=== PATIENT | male | born 1990 | race Caucasian/White ===

== ENCOUNTER 2018-03-31 11:52 | Emergency (ER) | payer BC, SELFPAY ==
[2018-03-31 12:30] VITALS: BP 132/66; PULSE 90; RESP 16; TEMP 36.7; O2SAT 97
[2018-03-31] MEDS: Acetaminophen 325 MG TAB 650 MG PO (15:15)
[2018-03-31] MEDS: Ketorolac 30 MG/ML VIAL IVP (15:20)
[2018-03-31] MEDS: Normal Saline Flush 10 ML SYR IVP (15:20)
[2018-03-31 15:25] LABS: Abs Immature Grans 0.03 k/cumm (0.0-0.09); Absolute Basophil Count 0.04 k/cumm (0.0-0.2); Absolute Eosinophil Count 0.16 k/cumm (0.0-0.7); Absolute Lymphocyte Count 0.95 k/cumm (1.2-3.4); Absolute Monocyte Count 0.31 k/cumm (0.11-0.7); Absolute Neutrophil Count 2.58 k/cumm (1.2-6.7); Eosinophils % 3.9; HCT 39.5 % (40.0-50.0); HGB 14.1 g/dL (13.5-17.5); Immature Grans % 0.7; Lymphocytes % 23.3; Mean Corp. HGB Concentration 35.7 g/dL (32.0-36.0); Mean Corpuscular Volume 89.6 fL (80-95); Mean Platelet Volume 10.8 fL (8.0-11.0); Monocytes % 7.6; Neutrophils % 63.5; Platelet Count 118 x1000/uL (130-400); RBC 4.41 m/cumm (4.50-6.00); RBC Distribution Width 13.1 % (11.8-14.1); White Blood Cell Count 4.07 k/cumm (4.4-10.8)
[2018-03-31 15:33] LABS: Mono Screening POSITIVE (Negative)
[2018-03-31 15:48] LABS: ALT 107 U/L (12-78); AST 100 U/L (15-37); Albumin 3.6 g/dL (3.4-5.0); Alkaline Phosphatase 163 U/L (46-116); Anion Gap 6.5 mmol/L (3-11); BUN 10 mg/dL (7-18); Bilirubin, Total 1.4 mg/dL (0.2-1.0); CO2 31.5 mmol/L (21.0-32.0); CREATININE 1.09 mg/dL (0.70-1.30); Calcium 9.1 mg/dL (8.5-10.1); Chloride 97 mmol/L (98-107); Glucose 96 mg/dL (70-100); Potassium 3.9 mmol/L (3.5-5.1); Sodium 135 mmol/L (136-145); Total Protein 7.2 g/dL (6.4-8.2)
--- NOTE | 2018-03-31 15:53 | ED.GENADUL_ITS ---
Discharge Plan Disposition Patient Disposition: HOME Discharge Details Chief Complaint: Headache Clinical Impression: Infectious mononucleosis, Thrombocytopenia, Transaminitis Reason For Visit: headache / fever 4 days Primary Care Provider: None,None ED Provider: Avi Chambers Home Meds and New Rx's Prescriptions: Continued acetaminophen 500 mg Tablet 1,000 mg PO PRNRF: 0 citalopram 10 mg Tablet 10 mg PO DAILY AM RF: 0 Discharge Instructions Instructions: Mononucleosis (ED) Additional Instructions: Drink plenty of fluids and allow for plenty of rest over the next 2 weeks. No contact sport until cleared to do so by a health care provider. Please contact your primary care physician to arrange follow-up. You will need repeat blood testing done. Be sure to discuss this with your doctor. Return to the ER for any worsening or new concerning symptoms. Discharge Data Discharge Date/Time-TO BE ENTERED AT DEPARTURE: 03/31/18 18:38 Medical Decision Making 15:20 --27-year-old male with history of depression and anxiety here today with headache, sinus congestion and fever over the past 4 days. Bilateral anterior cervical lymphadenopathy and mild erythematous posterior oropharynx is no. Patient has no meningeal signs. Neuro intact. No trauma. No known coagulopathy. Suspect viral illness. Consider mono. Plan to check screening labs and give IV fluid bolus as well as Toradol. Will reassess. 16:00 -- Labs reviewed. Mild elevation in LFTs and total bili with mild thrombocytopenia noted. 18:00 -- Labs reviewed and +mono. Mild thrombocytopenia and transaminitis can be seen with mono. Patient reassessed HERRERA resolved. Feeling better. All results were reviewed with the patient. Plan for discharge with outpatient follow-up. I advised he call his doctor to schedule timely follow-up and repeat lab testing. He was encouraged to return to the ER for any worsening or new concerning symptoms including severe abdominal pain, HERRERA or confusion. Disposition decision was made weighing the risks and benefits of hospitalization versus outpatient treatment, the risk for further decompensation, and the patient's wishes. The patient was stable and requested discharge. Prior to discharge, my usual and customary return precautions for IM were reviewed with the patient - this included follow-up instructions and reason to return to the emergency department if condition worsens, does not improve as expected, or other new concerns arise. HPI General Mode of arrival: ambulatory . Date/Time Provider Initiated Documentation: 03/31/18 14:23 . Limitations to Documentation: no limitations . Information obtained by: patient . HPI Narrative: 27-year-old male presents with chief complaint of headache. Patient notes a headache for the past 4 days that he describes as a sinus headache. Headache is severe and waxes and wanes. He has associated sinus congestion with no discharge. He also notes some swelling of his lymph nodes in his neck as well as recent fever over the past few days. Headache is described as a throbbing pain anti-inflammatory medication does seem to help discomfort. He has no associated neck stiffness or rash. Related Data Home Medications Medication Instructions Recorded Confirmed acetaminophen 1,000 mg PO PRN 03/31/18 citalopram 10 mg PO DAILY AM 03/31/18 03/31/18 Allergies Allergy/AdvReac Type Severity Reaction Status Date / Time cat dander Allergy Mild Unverified 03/31/18 12:37 General Stated Complaint: Headache VALARIE: 3 Review of Systems Review of Systems All systems reviewed & are unremarkable except as noted in HPI and below Constitutional Reports fever(s) and Reports headache(s) ENT Reports headache(s) and Reports sinus pressure Comments: intermittent sore throat Respiratory Denies cough Neurologic Reports headache(s) [facility] Social History Smoking/Tobacco Use Status: Never Exam Const General: cooperative and no acute distress [facility] Head: normocephalic and atraumatic General nose exam: external nose normal Mouth: oral mucosae normal and moist mucous membranes Throat: uvula midline and posterior oropharynx abnormal erythema (b/l); no cobblstoning, no edema and no exudates Eyes Conjunctivae: normal conjunctivae Sclera: normal sclerae EOM: EOM intact bilaterally Neck Neck: full ROM, trachea midline, supple, negative Brudzinski's sign and negative Kernig's sign Lymphatic: lymphadenopathy (bilateral anterior cervical) Resp Auscultation: clear to auscultation bilaterally, no rales, no rhonchi and no wheezes Cardio Jugular venous pressure: no JVD Rate: regular rate and not tachycardic Rhythm: regular rhythm GI Palpation: soft, not firm, no guarding, no masses, not rigid, no splenomegaly and nontender Skin General skin exam: no rashes or lesions noted Neuro General: alert, awake, oriented x3, tone normal, no meningeal signs and no focal motor deficits Cranial Nerves: CN's II-XI intact bilaterally Cognition: normal cognition Speech: speech normal Gait: normal gait Motor: muscle tone normal throughout Sensory Exam: no sensory deficits noted Extrem General: no edema Course Vital Signs Temperature 36.7 C 03/31/18 12:30 Pulse 90 03/31/18 12:30 Respiratory Rate 16 03/31/18 12:30 Blood Pressure 132/66 03/31/18 12:30 Pulse Oximetry 97 03/31/18 12:30 Temperature 36.7 C 03/31/18 12:30 Temperature Source Temporal Artery Scan 03/31/18 12:30 Pulse 90 03/31/18 12:30 Respiratory Rate 16 03/31/18 12:30 Respiratory Effort 03/31/18 12:40 Blood Pressure 132/66 03/31/18 12:30 Blood Pressure Position Sitting 03/31/18 12:30 Pulse Oximetry 97 03/31/18 12:30 Oxygen Delivery Method Room Air 03/31/18 12:30 Oxygen Flow Rate 0 03/31/18 12:30 Pain Level 6 03/31/18 12:38 Lab/Test Results Lab/Test Results: 03/31/18 12:45 Nasopharynx Influenza Types A,B Antigen - Final Laboratory Tests Range/Units 03/31/18 03/31/18 03/31/18 15:20 15:20 15:20 WBC (4.4-10.8) k/cumm 4.07 L RBC (4.50-6.00) m/cumm 4.41 L Hgb (13.5-17.5) g/dL 14.1 Hct (40.0-50.0) % 39.5 L MCV (80-95) fL 89.6 MCH (27.0-33.0) pg 32.0 MCHC (32.0-36.0) g/dL 35.7 RDW (11.8-14.1) % 13.1 Plt Count (130-400) x1000/uL 118 L MPV (8.0-11.0) fL 10.8 Immature Gran % 0.7 Neutrophils % 63.5 Lymphocytes % 23.3 Monocytes % 7.6 Eosinophils % 3.9 Basophils % 1.0 Absolute Neutrophils (1.2-6.7) k/cumm 2.58 Absolute Lymphocytes (1.2-3.4) k/cumm 0.95 L Absolute Monocytes (0.11-0.7) k/cumm 0.31 Absolute Eosinophils (0.0-0.7) k/cumm 0.16 Absolute Basophils (0.0-0.2) k/cumm 0.04 Sodium (136-145) mmol/L 135 L Potassium (3.5-5.1) mmol/L 3.9 Chloride (98-107) mmol/L 97 L Carbon Dioxide (21.0-32.0) mmol/L 31.5 Anion Gap (3-11) mmol/L 6.5 BUN (7-18) mg/dL 10 Creatinine (0.70-1.30) mg/dL 1.09 Estimated GFR/1.73 m2 (mL/min/1.73m2) >= 60.00 Glucose (70-100) mg/dL 96 Calcium (8.5-10.1) mg/dL 9.1 Total Bilirubin (0.2-1.0) mg/dL 1.4 H AST (15-37) U/L 100 H ALT (12-78) U/L 107 H Alkaline Phosphatase (46-116) U/L 163 H Total Protein (6.4-8.2) g/dL 7.2 Albumin (3.4-5.0) g/dL 3.6 Monoscreen (Negative) Positive
[2018-03-31] MEDS: Normal Saline 500 ML 1000 ML IV (18:00)
[2018-03-31 18:33] VITALS: BP 112/66; PULSE 77; RESP 16; TEMP 37; O2SAT 95
== END 2018-03-31 18:38 | disposition home or self-care (01) ==
PROVIDERS: Emergency Provider Student in an Organized Health Care Education/Training Program
DX: B27.90 Infectious mononucleosis, unspecified without complication (principal); R74.0 Nonspecific elevation of levels of transaminase and lactic acid dehydrogenase [LDH]; D69.6 Thrombocytopenia, unspecified; F41.8 Other specified anxiety disorders
CPT/HCPCS: 80053; 87449; 96361; 96374; 99284; 85025; 86308; J1885